=== PATIENT | female | born 1995 | race Hispanic/Latino ===

== ENCOUNTER 2020-01-14 13:13 | Outpatient (CLI) | payer OTHER ==
--- NOTE | 2020-01-14 15:34 | ULT ---
OB ULTRASOUND: Date: 01/14/2020 HISTORY: Size and dates. FINDINGS: Real-time imaging of the pelvis was performed. This shows a single, viable intrauterine in a cephalic presentation. The placenta is anterior in location without evidence of previa. heart rate is 147 beats/minute. The amniotic fluid is adequate for this stage of . The amniotic f luid index was calculated at 15.5 cm. Review of anatomy showed no abnormalities detected. measurements are as follows: BPD: 4.5 cm, 19 weeks/4 days HC: 16.8 cm, 19 weeks/3 days AC: 13.9 cm, 19 weeks/1 day FL: 3.1 cm, 19 weeks/4 days IMPRESSION: 1. Single, viable intrauterine in cephalic presentation. Overall measurements correspond t o 19 weeks and 3 days. Estimated date of delivery is 06/06/2020. 2. Placenta which is anterior in location without evidence of previa. POS: [facility]
== END 2020-01-14 13:14 | disposition home or self-care (01) ==
LOC: NAV ULT 13:13
PROVIDERS: ATTEND Family Medicine
DX: O09.92 Supervision of high risk pregnancy, unspecified, second trimester (principal); Z3A.19 19 weeks gestation of pregnancy
CPT/HCPCS: 76805